=== PATIENT | female | born 1955 | race Caucasian/White ===

== ENCOUNTER 2023-09-30 11:09 | Emergency (ER) | payer OTHER ==
[~2023-09-30] VITALS: Ht 167.6 cm; Wt 66.2 kg
[2023-09-30 15:45] VITALS: BP 153/75
== END 2023-09-30 15:52 | disposition home or self-care (01) ==
LOC: ER 11:09
DX: R06.02 Shortness of breath (principal); R00.2 Palpitations; Z87.891 Personal history of nicotine dependence